=== PATIENT | female | born 1955 | race Caucasian/White ===

== ENCOUNTER 2024-06-21 21:08 | Emergency (ER) | payer BC, MEDICARE, OTHER ==
[~2024-06-21] VITALS: Ht 167.6 cm; Wt 47.4 kg
[2024-06-21 21:09] VITALS: TEMP 97.9
[2024-06-22] MEDS: GASTROGRAFIN SOLUTION 30ML GT ONE (00:37)
[2024-06-22 01:43] VITALS: BP 108/59; O2SAT 98
== END 2024-06-22 01:47 | disposition home or self-care (01) ==
LOC: M ED 21:08
DX: K94.20 Gastrostomy complication, unspecified (principal); C15.9 Malignant neoplasm of esophagus, unspecified; Z91.040 Latex allergy status
CPT/HCPCS: 71045; 99283; Q9963

== ENCOUNTER 2024-06-23 14:56 | Emergency (ER) | payer BC, MEDICARE ==
[~2024-06-23] VITALS: Ht 167.6 cm; Wt 45.9 kg
[2024-06-23 14:57] VITALS: O2SAT 92
[2024-06-23 15:26] VITALS: TEMP 97.1
[2024-06-23] MEDS ORDERED: GASTROGRAFIN SOLUTION 30ML PO ONE (19:45)
[2024-06-23] MEDS: MORPHINE SULFATE ORAL SOLN 10 MG/5 ML UD PEG ONE (20:07)
[2024-06-23] MEDS: GASTROGRAFIN SOLUTION 30ML PEG ONE (20:07)
[2024-06-23 20:35] VITALS: BP 120/67
== END 2024-06-23 20:39 | disposition home or self-care (01) ==
LOC: M ED 14:56
DX: K94.23 Gastrostomy malfunction (principal); Z91.040 Latex allergy status

== ENCOUNTER 2024-06-29 22:15 | Inpatient (IN) | payer MEDICARE ==
[~2024-06-29] VITALS: Ht 165.1 cm; Wt 47.5 kg
[2024-06-29 23:30] LABS: VENOUS BASE EXCESS 1.4 (-2.0-2.0); VENOUS HCO3 24.7 MMOL/L (23.0-27.0); VENOUS O2 SATURATION 39.4 % (60.0-80.0); VENOUS PARTIAL PRESSURE CO2 33.8 mmHg (38.0-50.0); VENOUS PARTIAL PRESSURE O2 23.3 mmHg (30.0-50.0); VENOUS PH 7.481 UNITS (7.330-7.430); VENOUS STANDARD HCO3 24.7 MMOL/L; VENOUS TOTAL CO2 25.7 MMOL/L (24.0-28.0)
[2024-06-29 23:55] LABS: BASO # 0.1 10^3/uL (0.0-0.2); BASO % 0.5 % (0.0-1.0); HEMATOCRIT 26.7 % (36.0-47.0); LYMPH # 0.3 10^3/uL (1.5-5.0); LYMPH % 1.9 % (24.0-44.0); MEAN CORPUSCULAR HEMOGLOBIN 34.5 pg (27.0-33.0); MEAN CORPUSCULAR HGB CONC 33.7 g/dl (32.0-36.5); MEAN CORPUSCULAR VOLUME 102.3 fl (80.0-96.0); MONO # 0.9 10^3/uL (0.0-0.8); MONO % 5.3 % (2.0-8.0); NEUTROPHILS % 89.5 % (36.0-66.0); PLATELET COUNT, AUTOMATED 175 10^3/uL (150-450); RED BLOOD COUNT 2.61 10^6/uL (4.00-5.40); WHITE BLOOD COUNT 17.9 10^3/uL (4.0-10.0)
[2024-06-30] VITALS (7 sets, daily range): BP systolic 84–94; BP diastolic 52–59; TEMP 96.5–97; O2SAT 96–100
[2024-06-30 00:12] LABS: CK-MB VALUE MASS < 1.0 NG/ML (<3.6)
[2024-06-30 00:13] LABS: ETHYL ALCOHOL (ETHANOL) 0.004 % (0.000-0.010)
[2024-06-30 00:14] LABS: CPK CREATINE PHOSPHOKINASE 30 U/L (34-145); MB/CK RELATIVE INDEX 3.33 (< OR =4)
[2024-06-30 00:15] LABS: ALKALINE PHOSPHATASE 112 U/L (46-116); ALT/SGPT < 9 U/L (7.0-40); AST/SGOT 12 U/L (<34); BILIRUBIN,DIRECT 0.4 MG/DL (<0.4); BLOOD UREA NITROGEN 16 MG/DL (9-23); CALCIUM LEVEL 8.3 MG/DL (8.3-10.6); CARBON DIOXIDE LEVEL 26 MMOL/L (20-31); CHLORIDE LEVEL 97 MMOL/L (98-107); CREATININE FOR GFR 0.56 MG/DL (0.55-1.30); GLOMERULAR FILTRATION RATE > 60.0 (>45); GLUCOSE, FASTING 80 MG/DL (74-106); POTASSIUM SERUM 4.2 MMOL/L (3.5-5.1); SODIUM LEVEL 125 MMOL/L (136-145); TOTAL PROTEIN 5.4 G/DL (5.7-8.2)
[2024-06-30 00:16] LABS: THYROID STIMULATING HORMONE 3.566 uIU/ML (0.55-4.78)
[2024-06-30 00:59] LABS: AMPHETAMINES LEVEL URINE NEGATIVE (NEGATIVE); CANNABINOIDS URINE NEGATIVE (NEGATIVE); METHADONE URINE NEGATIVE (NEGATIVE); PHENCYCLIDINE URINE NEGATIVE (NEGATIVE)
[2024-06-30] MEDS: cefTRIAXone SOD 1 GM in D5W MINI-BAG PLUS 50 ML IV ONE (00:59)
[2024-06-30] MEDS: AZITHROMYCIN INJ 500 MG, VIAL MATE ADAPTER 1 EACH in NS 250 ML IV ONE (00:59)
[2024-06-30 01:00] LABS: BARBITURATES URINE NEGATIVE (NEGATIVE); BENZODIAZEPINES URINE NEGATIVE (NEGATIVE); COCAINE METABOLITE URINE NEGATIVE (NEGATIVE)
[2024-06-30 01:21] LABS: OPIATES URINE POSITIVE (NEGATIVE)
[2024-06-30] MEDS ORDERED: ISOVUE-370 76% 100ML VIAL As Ordered ONE (01:31)
[2024-06-30] MEDS ORDERED: HYDROMORPHONE HCL 0.5 MG/ 0.5 ML SYRINGE IV PRN (01:35)
[2024-06-30] MEDS ORDERED: ONDANSETRON 4MG 2ML VIAL IV PRN (01:35)
[2024-06-30] MEDS: NS 1,000 ML IV SCH (01:35)
[2024-06-30] MEDS: PIPERACILLIN/TAZOBACTAM SOD 4.5 GM in D5W MINI-BAG PLUS 50 ML IV SCH (02:51)
[2024-06-30] MEDS: HYDROMORPHONE HCL 0.5 MG/ 0.5 ML SYRINGE IV PRN (02:54)
[2024-06-30 04:47] LABS: OSMOLALITY URINE 408 MOSM/KG (50-1400)
[2024-06-30 04:54] LABS: SODIUM,RANDOM URINE < 10 MMOL/L
[2024-06-30 05:01] LABS: PROCALCITONIN 0.51 ng/ml
[2024-06-30] MEDS: HEPARIN SOD (PORCINE) 5000UNITS/ML 1ML VIAL/SYRINGE SC SCH (06:00)
[2024-06-30] MEDS ORDERED: MORPHINE 2 MG/ML 1ML VIAL IV PRN (06:25)
[2024-06-30 07:58] LABS: HEMATOCRIT 21.9 % (36.0-47.0); HEMOGLOBIN 7.5 g/dl (12.0-15.5); MEAN CORPUSCULAR HEMOGLOBIN 35.2 pg (27.0-33.0); MEAN CORPUSCULAR HGB CONC 34.2 g/dl (32.0-36.5); MEAN CORPUSCULAR VOLUME 102.8 fl (80.0-96.0); PLATELET COUNT, AUTOMATED 156 10^3/uL (150-450); RED BLOOD COUNT 2.13 10^6/uL (4.00-5.40); WHITE BLOOD COUNT 18.9 10^3/uL (4.0-10.0)
[2024-06-30 08:08] LABS: INR 1.38; PROTHROMBIN TIME 16.5 SECONDS (12.5-14.5)
[2024-06-30 08:33] LABS: ALBUMIN 1.7 G/DL (3.2-5.2); ALKALINE PHOSPHATASE 90 U/L (46-116); ALT/SGPT < 9 U/L (7.0-40); AST/SGOT 11 U/L (<34); BILIRUBIN,TOTAL 0.7 MG/DL (0.3-1.2); BLOOD UREA NITROGEN 17 MG/DL (9-23); CALCIUM LEVEL 7.4 MG/DL (8.3-10.6); CARBON DIOXIDE LEVEL 25 MMOL/L (20-31); CHLORIDE LEVEL 98 MMOL/L (98-107); GLOMERULAR FILTRATION RATE > 60.0 (>45); GLUCOSE, FASTING 76 MG/DL (74-106); MAGNESIUM LEVEL 1.5 MG/DL (1.8-2.4); POTASSIUM SERUM 3.6 MMOL/L (3.5-5.1); SODIUM LEVEL 124 MMOL/L (136-145); TOTAL PROTEIN 4.6 G/DL (5.7-8.2)
[2024-06-30] MEDS ORDERED: PARO20TA3 PO (08:33)
[2024-06-30] MEDS ORDERED: FENT1DIS14 TOP (08:33)
[2024-06-30] MEDS ORDERED: ONDA-84 PO (08:33)
[2024-06-30] MEDS ORDERED: SENN-193 PO ×2 (08:33)
[2024-06-30] MEDS ORDERED: OLAN1TAB16 PO (08:33)
[2024-06-30] MEDS ORDERED: MORP10SO2 PO (08:33)
[2024-06-30] MEDS ORDERED: BRIM0.2S13 OU (08:33)
[2024-06-30] MEDS ORDERED: DORZ2SOL5 OU (08:33)
[2024-06-30] MEDS ORDERED: LEVO25TA5 PO (08:33)
[2024-06-30] MEDS ORDERED: CYAN-1 PO (08:33)
[2024-06-30] MEDS ORDERED: LIDO30CR18 TOP (08:33)
[2024-06-30] MEDS ORDERED: HOME MED LIST COMPLETE! XX SCH (08:35)
[2024-06-30] MEDS ORDERED: DOXYCYCLINE HYCLATE 100MG TABLET PO SCH (09:00)
[2024-06-30] MEDS: PANTOPRAZOLE 40MG VIAL IV SCH (10:37)
[2024-06-30] MEDS: NS 1,000 ML IV ONE ×4 (10:38→15:11)
[2024-06-30] MEDS: ENOXAPARIN 40MG/0.4ML SYRINGE (J1650 PER 10MG) SC SCH (10:38)
[2024-06-30] MEDS: MAG SULF 1GM/100ML (MAG RUN) 1 GM in IV 1 EA IV SCH ×2 (13:00→18:32)
[2024-06-30] MEDS: DOXYCYCLINE HYCLATE 100 MG in D5W MINI-BAG PLUS 100 ML IV SCH (13:59)
[2024-06-30] MEDS: VANCOMYCIN HCL 1,000 MG, VIAL MATE ADAPTER 1 EACH in D5W 250 ML IV ONE (16:17)
[2024-06-30] MEDS ORDERED: ALBUTEROL SULFATE 2.5MG/0.5ML INH NEB SOLN NEB PRN (17:00)
[2024-06-30 17:23] LABS: HEMATOCRIT 22.7 % (36.0-47.0); HEMOGLOBIN 7.7 g/dl (12.0-15.5); MEAN CORPUSCULAR HEMOGLOBIN 35.5 pg (27.0-33.0); MEAN CORPUSCULAR HGB CONC 33.9 g/dl (32.0-36.5); MEAN CORPUSCULAR VOLUME 104.6 fl (80.0-96.0); PLATELET COUNT, AUTOMATED 154 10^3/uL (150-450); RED BLOOD COUNT 2.17 10^6/uL (4.00-5.40); WHITE BLOOD COUNT 20.1 10^3/uL (4.0-10.0)
[2024-06-30] MEDS ORDERED: OLANZapine 5 MG TAB GT PRN (17:25)
[2024-06-30] MEDS: KETOROLAC 30 MG/ML 1ML VIAL IV ONE (17:54)
[2024-06-30 18:10] LABS: IRON (FE) 20 UG/DL (50-170); PERCENT SATURATION 15.7 % (13.2-45.0); TOTAL IRON BINDING CAPACITY 127 UG/DL (250-425)
[2024-06-30 18:14] LABS: FERRITIN 1185.5 NG/ML (7.3-270.7); VITAMIN B12 LEVEL 1009 PG/ML (211-911)
[2024-06-30 18:17] LABS: ALBUMIN 1.5 G/DL (3.2-5.2); ALKALINE PHOSPHATASE 89 U/L (46-116); ALT/SGPT < 9 U/L (7.0-40); AST/SGOT 12 U/L (<34); BILIRUBIN,TOTAL 0.5 MG/DL (0.3-1.2); BLOOD UREA NITROGEN 16 MG/DL (9-23); CALCIUM LEVEL 6.8 MG/DL (8.3-10.6); CARBON DIOXIDE LEVEL 23 MMOL/L (20-31); CHLORIDE LEVEL 100 MMOL/L (98-107); CREATININE FOR GFR 0.55 MG/DL (0.55-1.30); FOLATE 14.15 NG/ML (>5.4); GLOMERULAR FILTRATION RATE > 60.0 (>45); GLUCOSE, FASTING 93 MG/DL (74-106); POTASSIUM SERUM 3.3 MMOL/L (3.5-5.1); SODIUM LEVEL 129 MMOL/L (136-145); TOTAL PROTEIN 4.3 G/DL (5.7-8.2)
[2024-06-30] MEDS: COSOPT OCUMETER PLUS 10ML (DORZOLAMIDE/TIMOLOL) OU SCH (20:28)
[2024-06-30] MEDS: VANCOMYCIN HCL 750 MG, VIAL MATE ADAPTER 1 EACH in D5W 250 ML IV SCH (21:45)
[2024-06-30] MEDS: KCL 10MEQ/100ML SWI (KRUN) 10 MEQ in IV 1 EA IV SCH (23:13)
[2024-07-01] VITALS: BP 85/57; TEMP 97.8; O2SAT 92
[2024-07-01] MEDS: MORPHINE 2 MG/ML 1ML VIAL IV PRN (01:46)
[2024-07-01] MEDS ORDERED: POTASSIUM CHLORIDE 10% LIQ 20MEQ/15ML UDC PO ONE (03:50)
[2024-07-01 04:50] VITALS: BP 98/70; TEMP 98.1; O2SAT 99
[2024-07-01] MEDS: LEVOTHYROXINE 25MCG TABLET (0.025MG) GT SCH (05:45)
[2024-07-01 07:17] LABS: BASO # 0.1 10^3/uL (0.0-0.2); BASO % 0.6 % (0.0-1.0); EOS % 0.1 % (0.0-3.0); HEMATOCRIT 22.7 % (36.0-47.0); HEMOGLOBIN 7.6 g/dl (12.0-15.5); LYMPH # 0.3 10^3/uL (1.5-5.0); LYMPH % 1.4 % (24.0-44.0); MEAN CORPUSCULAR HGB CONC 33.5 g/dl (32.0-36.5); MEAN CORPUSCULAR VOLUME 104.6 fl (80.0-96.0); MONO # 0.6 10^3/uL (0.0-0.8); MONO % 3.3 % (2.0-8.0); NEUTROPHILS # 17.4 10^3/uL (1.5-8.5); NEUTROPHILS % 91.6 % (36.0-66.0); PLATELET COUNT, AUTOMATED 164 10^3/uL (150-450); RED BLOOD COUNT 2.17 10^6/uL (4.00-5.40); WHITE BLOOD COUNT 18.9 10^3/uL (4.0-10.0)
[2024-07-01 07:41] VITALS: BP 103/64; TEMP 98; O2SAT 98
[2024-07-01 07:46] LABS: CORTISOL AM 34.3 UG/DL (4.3-22.4)
[2024-07-01 07:47] LABS: ALBUMIN 1.6 G/DL (3.2-5.2); ALKALINE PHOSPHATASE 90 U/L (46-116); ALT/SGPT < 9 U/L (7.0-40); AST/SGOT 13 U/L (<34); BILIRUBIN,TOTAL 0.4 MG/DL (0.3-1.2); BLOOD UREA NITROGEN 18 MG/DL (9-23); CALCIUM LEVEL 7.2 MG/DL (8.3-10.6); CARBON DIOXIDE LEVEL 22 MMOL/L (20-31); CHLORIDE LEVEL 98 MMOL/L (98-107); CREATININE FOR GFR 0.69 MG/DL (0.55-1.30); GLOMERULAR FILTRATION RATE > 60.0 (>45); GLUCOSE, FASTING 94 MG/DL (74-106); MAGNESIUM LEVEL 1.9 MG/DL (1.8-2.4); POTASSIUM SERUM 3.9 MMOL/L (3.5-5.1); SODIUM LEVEL 127 MMOL/L (136-145); TOTAL PROTEIN 4.5 G/DL (5.7-8.2)
[2024-07-01] MEDS ORDERED: VANCOMYCIN HCL 500 MG in D5W MINI-BAG PLUS 100 ML IV SCH (11:00)
[2024-07-01 12:00] VITALS: BP 100/60; TEMP 98.1; O2SAT 98
[2024-07-01] MEDS: PARoxetine 20MG TABLET GT SCH (12:57)
[2024-07-01] MEDS: fentaNYL 25 MCG/HR PATCH TOP SCH (13:27)
[2024-07-01] MEDS ORDERED: HALOPERIDOL LACTATE 5MG/ML VIAL IV PRN (14:10)
[2024-07-01 16:00] VITALS: BP 101/70; TEMP 97.9; O2SAT 97
[2024-07-01] MEDS: MORPHINE SULFATE ORAL SOLN 10 MG/5 ML UD GT PRN (18:17)
[2024-07-01 19:46] VITALS: BP 100/65; TEMP 98; O2SAT 98
[2024-07-01] MEDS: DOXYCYCLINE HYCLATE 100MG TABLET GT SCH (21:42)
[2024-07-02 04:21] VITALS: BP 92/74; TEMP 97.4; O2SAT 94
[2024-07-02 06:12] LABS: BASO # 0.2 10^3/uL (0.0-0.2); BASO % 0.7 % (0.0-1.0); HEMATOCRIT 26.7 % (36.0-47.0); HEMOGLOBIN 8.8 g/dl (12.0-15.5); LYMPH # 0.3 10^3/uL (1.5-5.0); LYMPH % 1.4 % (24.0-44.0); MEAN CORPUSCULAR HEMOGLOBIN 35.5 pg (27.0-33.0); MEAN CORPUSCULAR VOLUME 107.7 fl (80.0-96.0); MONO # 0.7 10^3/uL (0.0-0.8); MONO % 3.3 % (2.0-8.0); NEUTROPHILS # 18.5 10^3/uL (1.5-8.5); NEUTROPHILS % 91.9 % (36.0-66.0); PLATELET COUNT, AUTOMATED 184 10^3/uL (150-450); RED BLOOD COUNT 2.48 10^6/uL (4.00-5.40); WHITE BLOOD COUNT 20.2 10^3/uL (4.0-10.0)
[2024-07-02 06:42] LABS: BLOOD UREA NITROGEN 19 MG/DL (9-23); CALCIUM LEVEL 8.1 MG/DL (8.3-10.6); CARBON DIOXIDE LEVEL 16 MMOL/L (20-31); CHLORIDE LEVEL 102 MMOL/L (98-107); CREATININE FOR GFR 0.68 MG/DL (0.55-1.30); GLOMERULAR FILTRATION RATE > 60.0 (>45); GLUCOSE, FASTING 56 MG/DL (74-106); POTASSIUM SERUM 3.8 MMOL/L (3.5-5.1); SODIUM LEVEL 128 MMOL/L (136-145)
[2024-07-02 08:03] VITALS: BP 100/70; TEMP 97.8; O2SAT 94
[2024-07-02] MEDS ORDERED: VANCOMYCIN HCL 750 MG, VIAL MATE ADAPTER 1 EACH in D5W 250 ML IV SCH (10:00)
[2024-07-02] MEDS ORDERED: LORazepam 1 MG TAB GT PRN (11:45)
[2024-07-02] MEDS ORDERED: ACETAMINOPHEN 325MG/10.15ML UDC GT PRN (11:45)
[2024-07-02] MEDS ORDERED: ONDANSETRON 4MG ORAL DISINTEGRATING TAB PO PRN (11:45)
[2024-07-02] MEDS ORDERED: SCOPOLAMINE 1MG TRANSDERMAL PATCH TOP PRN (11:45)
[2024-07-02] MEDS ORDERED: HYOSCYAMINE SULFATE 0.125 MG SUBL TABLET PEG PRN (11:45)
[2024-07-02 12:00] VITALS: BP 129/58; TEMP 97.9; O2SAT 94
[2024-07-02] MEDS: AUGMENTIN BID 400MG/5ML SUSP 50ML BTL PO SCH (14:15)
[2024-07-02 16:00] VITALS: BP 117/72; TEMP 97; O2SAT 96
[2024-07-03] MEDS: FENTANYL REMOVAL DOCUMENTATION MISC XX SCH (09:00)
[2024-07-03 11:05] VITALS: TEMP 97.3
[2024-07-03] MEDS ORDERED: ISOVUE-300 61% 100ML VIAL As Ordered ONE (11:43)
[2024-07-03] MEDS ORDERED: LIDOCAINE 1% MDV 20ML VIAL As Ordered ONE (11:43)
[2024-07-03] MEDS ORDERED: fentaNYL 100 MCG/2 ML INJECTION As Ordered ONE (11:58)
[2024-07-03] MEDS ORDERED: MIDAZOLAM INJ 2MG/2ML VIAL As Ordered ONE (11:58)
[2024-07-03] MEDS ORDERED: LIDOCAINE 2% JELLY 6ML SYRINGE As Ordered ONE (12:15)
[2024-07-03 12:45] VITALS: BP 110/61; O2SAT 98
[2024-07-04] MEDS ORDERED: ATIV1TAB10 PO (08:07)
[2024-07-04] MEDS ORDERED: HYOS125TA PO (08:07)
[2024-07-04] MEDS ORDERED: MORP1SOL5 PO (08:07)
== END 2024-07-04 10:55 | disposition hospice, inpatient (51) | DRG 871 ==
LOC: EDBD 22:15 → M ED 22:15 → M ED INP 06-30 01:29 → M PCU 06-30 12:43 → M MSPAV 07-03 20:18
PROVIDERS: ADMIT Preventive Medicine Undersea and Hyperbaric Medicine; ATTEND Internal Medicine Nephrology
PROC: 0W9G30Z Drainage of Peritoneal Cavity with Drainage Device, Percutaneous Approach (ICD-10-PCS; principal; 2024-07-03 11:00)
DX: A41.9 Sepsis, unspecified organism (principal); J18.9 Pneumonia, unspecified organism; G93.41 Metabolic encephalopathy; E43 Unspecified severe protein-calorie malnutrition; C15.5 Malignant neoplasm of lower third of esophagus; E87.1 Hypo-osmolality and hyponatremia; R64 Cachexia; R18.8 Other ascites; I50.32 Chronic diastolic (congestive) heart failure; F05 Delirium due to known physiological condition; R41.82 Altered mental status, unspecified; E83.42 Hypomagnesemia; Z51.5 Encounter for palliative care; Z66 Do not resuscitate; R13.10 Dysphagia, unspecified; E86.0 Dehydration; E86.1 Hypovolemia; D64.9 Anemia, unspecified; E03.9 Hypothyroidism, unspecified; K21.9 Gastro-esophageal reflux disease without esophagitis; H40.9 Unspecified glaucoma; F39 Unspecified mood [affective] disorder; K59.09 Other constipation; Z93.1 Gastrostomy status; Z91.040 Latex allergy status; Z95.828 Presence of other vascular implants and grafts; Z92.3 Personal history of irradiation; Z92.21 Personal history of antineoplastic chemotherapy; Z79.899 Other long term (current) drug therapy